=== PATIENT | female | born 1990 | race Caucasian/White ===

== ENCOUNTER 2018-01-01 15:13 | Inpatient (IN) | payer OTHER ==
[~2018-01-01] VITALS: Ht 170.1 cm; Wt 68.9 kg
[2018-01-01 16:00] VITALS: BP 127/73
[2018-01-01 16:42] LABS: BILIRUBIN NEGATIVE (NEGATIVE); BLOOD 1+ (NEGATIVE); CLARITY SL CLOUDY (CLEAR); COLOR YELLOW (YELLOW); GLUCOSE NEGATIVE (NEGATIVE); KETONE TRACE (NEGATIVE); LEUKO ESTERASE TRACE (NEGATIVE); NITRITE POSITIVE (NEGATIVE); PH 6.5 (5.0-9.0)
[2018-01-01 16:44] LABS: HEMATOCRIT 41.6 % (37.0-47.0); HEMOGLOBIN 13.6 g/dl (12.0-16.0); MEAN CELL VOLUME 87.6 fl (81.0-99.0); MEAN CORPUSCULAR HGB 28.6 pg (27.0-31.0); MEAN CORPUSCULAR HGB CONC 32.7 g/dl (33.0-37.0); MEAN PLATELET VOLUME 9.3 fl (9.6-12.3); PLATELET COUNT AUTOMATED 190 10*3/uL (130-400); RED BLOOD COUNT 4.75 10*6/uL (4.10-5.10); RED CELL DISTRI WIDTH 12.8 % (0-14.5); WHITE BLOOD COUNT 4.6 10*3/uL (4.8-10.8)
[2018-01-01 16:50] LABS: BACTERIA 4+
[2018-01-01 16:54] LABS: EPITHELIAL CELLS 31-40; WBC 21-30 wbc/hpf (0-5)
[2018-01-01 16:59] LABS: URINE AMPHETAMINES > 1000 (1000ng/ml); URINE BARBITURATES < 200 (200ng/ml); URINE BENZODIAZEPINES > 200 (200ng/ml); URINE CANNABINOIDS (THC) < 50 (50ng/ml); URINE COCAINE > 300 (300ng/ml); URINE METHADONE < 300 (300ng/ml); URINE OPIATES > 300 (300ng/ml)
[2018-01-01 17:00] LABS: ALBUMIN 3.9 gm/dl (3.1-4.5); ALKALINE PHOSPHATASE 85 U/L (45-117); BUN 14 mg/dl (7-24); CHLORIDE 100 mmol/L (98-107); CREATININE 1.08 mg/dL (0.55-1.02); POTASSIUM 3.5 mmol/L (3.5-5.1); SGOT/AST 56 IU/L (3-35); SGPT/ALT 90 U/L (12-78); SODIUM 136 mmol/L (136-145); TOTAL PROTEIN 8.6 gm/dL (6.4-8.2)
[2018-01-01 17:02] LABS: BETA-HCG, QUANT < 1.0 mIU/mL (1-3); ETHYL ALCOHOL < 3.0 mg/dl (<3)
[2018-01-01 17:02] LABS: URINE PHENCYCLIDINE < 25 (25ng/ml)
[2018-01-01 17:25] LABS: ATYPICAL LYMPHS 2 % (0-0); TOTAL CELLS COUNTED 100 #CELLS
[2018-01-01 17:26] LABS: PLATELET SUFFICIENCY NORMAL (NORMAL)
[2018-01-01 20:00] VITALS: BP 126/71
[2018-01-02] VITALS: BP 115/62
[2018-01-02 08:00] VITALS: BP 114/61
[2018-01-02 12:00] VITALS: BP 112/58
[2018-01-02 16:00] VITALS: BP 113/57
[2018-01-02 20:07] VITALS: BP 107/57
[2018-01-03] VITALS: BP 114/61
[2018-01-03 08:00] VITALS: BP 95/56
[2018-01-03 08:25] LABS: BUN 12 mg/dl (7-24); CHLORIDE 104 mmol/L (98-107); CREATININE 0.92 mg/dL (0.55-1.02); POTASSIUM 3.9 mmol/L (3.5-5.1); SODIUM 138 mmol/L (136-145)
[2018-01-03 08:51] LABS: HEMATOCRIT 41.8 % (37.0-47.0); HEMOGLOBIN 14.1 g/dl (12.0-16.0); MEAN CORPUSCULAR HGB 28.7 pg (27.0-31.0); MEAN CORPUSCULAR HGB CONC 33.7 g/dl (33.0-37.0); MEAN PLATELET VOLUME 9.7 fl (9.6-12.3); PLATELET COUNT AUTOMATED 233 10*3/uL (130-400); RED BLOOD COUNT 4.92 10*6/uL (4.10-5.10); WHITE BLOOD COUNT 6.9 10*3/uL (4.8-10.8)
[2018-01-03 08:53] LABS: ATYPICAL LYMPHS 6 % (0-0); PLATELET SUFFICIENCY NORMAL (NORMAL); TOTAL CELLS COUNTED 100 #CELLS
[2018-01-03 12:00] VITALS: BP 98/58
[2018-01-03] MEDS ORDERED: KEFLEX 500 MG E2 CAP PO (12:52)
[2018-01-03 16:00] VITALS: BP 102/60
[2018-01-03 20:00] VITALS: BP 116/60
[2018-01-04] VITALS: BP 119/69
[2018-01-04 08:00] VITALS: BP 124/67
== END 2018-01-04 12:04 | disposition home or self-care (01) | DRG 896 ==
LOC: 4E 15:13
PROVIDERS: Hospitalist; Registered Nurse
DX: F11.23 Opioid dependence with withdrawal (principal); N17.0 Acute kidney failure with tubular necrosis; N30.00 Acute cystitis without hematuria; B19.20 Unspecified viral hepatitis C without hepatic coma; F32.9 Major depressive disorder, single episode, unspecified; F13.10 Sedative, hypnotic or anxiolytic abuse, uncomplicated; D72.819 Decreased white blood cell count, unspecified; F41.9 Anxiety disorder, unspecified; F14.10 Cocaine abuse, uncomplicated; F17.200 Nicotine dependence, unspecified, uncomplicated; B96.89 Other specified bacterial agents as the cause of diseases classified elsewhere; Z87.19 Personal history of other diseases of the digestive system; Z81.8 Family history of other mental and behavioral disorders; Z79.899 Other long term (current) drug therapy

== ENCOUNTER 2019-07-31 13:25 | Inpatient (IN) | payer OTHER ==
[~2019-07-31] VITALS: Ht 171.4 cm; Wt 74.0 kg
--- NOTE | ~2019-07-31 | EKG ---
[place], [place] ELECTROCARDIOGRAM REPORT NAME: NEFTALI MUNOZ UNIT #: [id number] ROOM: 519 DOCTOR: CINDY DRAFT REPORT BIRTHDATE: [birth year] [facility] Test Date: 2019-07-31 Test Time: 15:56:13 Pat Name: NEFTALI MUNOZ Department: Room: [facility] 1 Gender: F End Trimmer: SS RESP : 1990 Requested By: ANJUM CORNELIUS Order Number: [id number] Reading MD: Cecile Zhang MD Measurements Intervals [place] Rate: 86 P: 3 CA: 146 QRS: 39 QRSD: 100 T: 21 QT: 378 QTc: 452 Interpretive Statements Sinus rhythm RSR' in V1 or V2, right VCD or RVH Electronically Signed On 08-01-2019 8:52:21 PDT by Cecile Zhang MD CM:[email or web address]:ELECTROCARDIOGRAM REPORT [id number] ANJUM WHITE DRAFT REPORT ANJUM CORNELIUS
[~2019-07-31 13:25] MED LIST: KEFLEX 500 MG E2 CAP PO
[2019-07-31 14:30] VITALS: BP 134/81; BP 139/81
--- NOTE | 2019-07-31 14:30 | NUR ---
28 year old FEMALE admitted to room # 519 for stabilization. Reports an addiction to HEROIN last used 18 hours prior to admission. Compliant with admission procedure. Patient denies any anxiety, but is unable to sit still, taps toes to floor continuously, looks about room, unable to focus eyes on nurse during interview. See assessment forms for additional information about patient status.
--- NOTE | 2019-07-31 14:56 | NUR ---
PATIENT MEETS [facility]. CINA=17. PATIENT IS GOING TO FOLLOW WITH THE [facility] AND ALSO NA MEETINGS FOR HER AFTERCARE PLAN. OSVALDO TOLLIVER B.A. PLACEMENT MANAGER
[2019-07-31 16:00] VITALS: BP 139/81
[2019-07-31 16:00] LABS: BILIRUBIN NEGATIVE (NEGATIVE); BLOOD NEGATIVE (NEGATIVE); CLARITY SL CLOUDY (CLEAR); COLOR YELLOW (YELLOW); GLUCOSE NEGATIVE (NEGATIVE); KETONE NEGATIVE (NEGATIVE); LEUKO ESTERASE NEGATIVE (NEGATIVE); NITRITE NEGATIVE (NEGATIVE)
[2019-07-31 16:09] LABS: BACTERIA TRACE; WBC 0-2 wbc/hpf (0-5)
[2019-07-31 16:15] LABS: URINE AMPHETAMINES < 1000 (1000ng/ml); URINE BARBITURATES < 200 (200ng/ml); URINE BENZODIAZEPINES < 200 (200ng/ml); URINE CANNABINOIDS (THC) < 50 (50ng/ml); URINE COCAINE > 300 (300ng/ml); URINE METHADONE < 300 (300ng/ml); URINE OPIATES > 300 (300ng/ml)
[2019-07-31 16:18] LABS: URINE PHENCYCLIDINE < 25 (25ng/ml)
[2019-07-31 16:54] LABS: BASO % 0.3 % (0.0-1.0); EOS # 0.2 10*3/uL (0.0-0.4); HEMOGLOBIN 13.6 g/dl (12.0-16.0); LYMPH # 2.9 10*3/uL (1.3-4.4); LYMPH % 38.9 % (27.0-41.0); MEAN CELL VOLUME 92.8 fl (81.0-99.0); MEAN CORPUSCULAR HGB 30.8 pg (27.0-31.0); MEAN CORPUSCULAR HGB CONC 33.2 g/dl (33.0-37.0); MEAN PLATELET VOLUME 9.7 fl (9.6-12.3); MONO # 0.5 10*3/uL (0.1-1.0); MONO % 6.5 % (3.0-9.0); NEUT # 3.8 10*3/uL (2.3-7.9); NEUT % 51.2 % (47.0-73.0); PLATELET COUNT AUTOMATED 259 10*3/uL (130-400); RED BLOOD COUNT 4.42 10*6/uL (4.10-5.10); RED CELL DISTRI WIDTH 13.3 % (0-14.5); WHITE BLOOD COUNT 7.4 10*3/uL (4.8-10.8)
[2019-07-31 17:02] LABS: INTERNATIONAL NORM RATIO 0.9 (2.0-3.5)
[2019-07-31 17:09] LABS: ALBUMIN 3.5 gm/dl (3.1-4.5); ALKALINE PHOSPHATASE 83 U/L (45-117); BUN 14 mg/dl (7-24); CHLORIDE 104 mmol/L (98-107); CREATININE 0.66 mg/dL (0.55-1.02); POTASSIUM 3.4 mmol/L (3.5-5.1); SGOT/AST 48 IU/L (3-35); SGPT/ALT 56 U/L (12-78); SODIUM 137 mmol/L (136-145); TOTAL PROTEIN 7.4 gm/dL (6.4-8.2)
[2019-07-31 17:13] LABS: BETA-HCG, QUANT < 1.0 mIU/mL (1-3); ETHYL ALCOHOL < 3.0 mg/dl (<3)
--- NOTE | 2019-07-31 17:18 | NUR ---
PATIENT MEDICATED WITH ROBAXIN AND VISTARIL PER PRN ORDER FOR COMPLAINTS OF ANXIETY AND MUSCLE ACHES. WILL MONITOR FOR EFFECTIVENESS.
--- NOTE | 2019-07-31 18:25 | NUR ---
PER PATIENT, PRN MEDS HAVE BEEN EFFECTIVE- MORE RELAXED AT THIS TIME.
[2019-07-31 20:00] VITALS: BP 136/82
--- NOTE | 2019-07-31 20:10 | NUR ---
MEDICATED WITH ZOFRAN PER PRN ORDER FOR C/O NAUSEA/VOMITING.
--- NOTE | 2019-08-01 05:13 | NUR ---
24 HR chart check completed.
[2019-08-01 08:00] VITALS: BP 125/74
--- NOTE | 2019-08-01 11:38 | NUR ---
PATIENT REPORTS THAT SHE IS GOING TO FOLLOW UP WITH [facility] IN [place] AND ALSO AA/NA MEETINGS. PATIENT AGREES AND UNDERSTANDS HIS AFTERCARE PLAN. OSVALDO TOLLIVER B.A. RECYCLING MANAGER
[2019-08-01 12:00] VITALS: BP 128/66
[2019-08-01 16:00] VITALS: BP 122/56
[2019-08-01 20:00] VITALS: BP 137/85
--- NOTE | 2019-08-01 20:45 | NUR ---
PT MEDICATED WITH ZOFRAN AND IMMODIUM FOR C/O NAUSEA AND DIARRHEA.
--- NOTE | 2019-08-01 23:00 | NUR ---
ZOFRAN AND IMMODIUM EFFECTIVE. PT MEDICATED WITH DESYREL, REQUIP, ROBAXIN, AND VISTARIL PER PRN ORDERS FOR S/S OF WITHDRAWL.
[2019-08-02] VITALS: BP 140/88
--- NOTE | 2019-08-02 07:37 | NUR ---
24 HR chart check completed.
[2019-08-02 08:00] VITALS: BP 145/94
--- NOTE | 2019-08-02 09:00 | NUR ---
Patient resting. Responding to scheduled medications with fewer complaints of pain and anxiety.
[2019-08-02 12:00] VITALS: BP 140/94
--- NOTE | 2019-08-02 14:00 | NUR ---
Patient resting. Responding to scheduled medications with fewer complaints of pain and anxiety.
[2019-08-02 16:00] VITALS: BP 138/83
--- NOTE | 2019-08-02 16:00 | NUR ---
Patient resting. Responding to scheduled medications with fewer complaints of pain and anxiety.
--- NOTE | 2019-08-02 16:45 | NUR ---
PATIENT SEEN AMBULATING OFF FLOOR WITH BOYFRIEND. ROOM CHECKED, ALL BELONGINGS GONE. DR FLORENCE AND HOT TAR ROOFER INFORMED OF AMA.
== END 2019-08-02 16:45 | disposition left against medical advice (07) | DRG 770 ==
LOC: 5E 13:25
PROVIDERS: Student in an Organized Health Care Education/Training Program; ADMIT Family Medicine
DX: F11.23 Opioid dependence with withdrawal (principal); F14.10 Cocaine abuse, uncomplicated; M79.10 Myalgia, unspecified site; R68.83 Chills (without fever); F17.210 Nicotine dependence, cigarettes, uncomplicated; F32.9 Major depressive disorder, single episode, unspecified; B19.20 Unspecified viral hepatitis C without hepatic coma; F41.9 Anxiety disorder, unspecified; Z53.29 Procedure and treatment not carried out because of patient's decision for other reasons; E87.6 Hypokalemia; R00.0 Tachycardia, unspecified; R09.89 Other specified symptoms and signs involving the circulatory and respiratory systems; Z71.6 Tobacco abuse counseling; Z81.8 Family history of other mental and behavioral disorders; Z82.49 Family history of ischemic heart disease and other diseases of the circulatory system; Z80.8 Family history of malignant neoplasm of other organs or systems